=== PATIENT | female | born 1985 | race Two or more races ===

== ENCOUNTER 2018-03-26 00:28 | Emergency (ER) | payer MEDICAID ==
[~2018-03-26] VITALS: Ht 175.3 cm; Wt 79.4 kg
--- NOTE | 2018-03-26 00:30 | NUR ---
TO BED 9 AMBULATORY BIB FRIEND C/O "I HAVE BEEN THINKING OF KILLING MYSELF BUT I DONT THINK I WILL".I ALSO STARTED PLAYING W/ THE IDEA OF CUTTING MYSELF".+SI,-HI.DENIES DRUGS. PT AAOX4 NO ACUTE DISTRESS NOTED, RESP EVEN AND UNLABORED. PT CALM AND COOPERATIVE AT THIS TIME. PENDING ER MD [place].
--- NOTE | 2018-03-26 01:04 | NUR ---
ER MD AT BEDSIDE TO EVAL PT WITH ORDERS RECEIVED. WILL CARRY OUT ORDERS.
--- NOTE | 2018-03-26 01:08 | NUR ---
URINE SAMPLE COLLECTED, [employer] TECHNICIAN AT BEDSIDE TO BLOOD DRAW.
[2018-03-26 01:16] LABS: BASOPHILS % (AUTO) 0.5 % (0.0-2.0); HEMATOCRIT 39 % (33-45); HEMOGLOBIN 12.8 g/dL (11.5-14.8); LYMPHOCYTES # (AUTO) 1.9 /CMM (0.8-4.8); LYMPHOCYTES % (AUTO) 28.5 % (20.0-44.0); MEAN CORPUSCULAR HEMOGLOBIN 28 PG (26.0-33.0); MEAN CORPUSCULAR HGB CONC 33 g/dl (31.0-36.0); MEAN CORPUSCULAR VOLUME 84 fL (82-100); MONOCYTES # (AUTO) 0.6 /CMM (0.1-1.30); MONOCYTES % (AUTO) 9.3 % (2.0-12.0); NEUTROPHILS # (AUTO) 3.9 /CMM (1.8-8.9); NEUTROPHILS % (AUTO) 58.7 % (43.0-81.0); PLATELET COUNT (AUTO) 218 /CMM (150-450); WHITE BLOOD COUNT (AUTO) 6.7 K/uL (4.3-11.0)
[2018-03-26 01:32] LABS: CARBON DIOXIDE 29 mmol/L (21-32); CHLORIDE 103 mmol/L (98-107); CREATININE 0.8 mg/dL (0.6-1.3); GLUCOSE 86 mg/dL (74-106); POTASSIUM 3.8 mmol/L (3.5-5.1); SODIUM SERUM 138 mmol/L (136-145); UREA NITROGEN, BLOOD 19 mg/dL (7-18)
[2018-03-26 01:37] LABS: ALANINE AMINOTRANSFERASE 27 U/L (12-78); ALBUMIN 3.6 g/dL (3.4-5.0); ALCOHOL, BLOOD < 3 mg/dL (0-0); ALKALINE PHOSPHATASE 37 U/L (46-116); ASPARTATE AMINOTRANSFERASE 19 U/L (15-37); BILIRUBIN,DIRECT 0.1 mg/dL (0.0-0.2); BILIRUBIN,TOTAL 0.3 mg/dL (0.2-1.0); TOTAL PROTEIN, SERUM 7.1 g/dL (6.4-8.2)
[2018-03-26 01:38] LABS: ACETAMINOPHEN < 10 ug/ml (10-30)
--- NOTE | 2018-03-26 01:51 | NUR ---
GERALDO TORRESW AT BEDSIDE TO ADIN FELDMAN.
--- NOTE | 2018-03-26 08:30 | NUR ---
REPORT GIVEN TO MARJORIE AT [facility].
--- NOTE | 2018-03-26 08:34 | NUR ---
SPOKE WITH OCTOBER WITH [facility] TO SET UP BLS TRANSPORT TO [facility]. ETA [id number]. TRIP #[id number]
[2018-03-26] MEDS ORDERED: LORAZEPAM 1 MG TABLET ONE (09:16)
--- NOTE | 2018-03-26 09:39 | NUR ---
patiet having a panic attack, anxious, crying in bed. md informed, ordered ativan. medication given per md orders.
[2018-03-26] MEDS ORDERED: LORAZEPAM 0.5 MG TABLET PO ONE (10:00)
[2018-03-26 10:10] VITALS: BP 128/64
--- NOTE | 2018-03-26 10:12 | NUR ---
Patient transferred to [facility] in stable condition. Written and verbal after care instructions given. Patient verbalizes understanding of instruction. Left via ambulance.
== END 2018-03-26 10:11 ==
LOC: ER 00:39
DX: F32.9 Major depressive disorder, single episode, unspecified (principal); F90.9 Attention-deficit hyperactivity disorder, unspecified type; W26.0XXA Contact with knife, initial encounter; Y93.89 Activity, other specified; Y92.89 Other specified places as the place of occurrence of the external cause; Y99.8 Other external cause status
CPT/HCPCS: 36415; 80048; 80076; 80305; 80329; 84703; 85025; 99285; A4606; G0480 ×2; Z7610

== ENCOUNTER 2018-12-30 20:12 | Emergency (ER) | payer MEDICAID ==
[~2018-12-30] VITALS: Ht 175.3 cm; Wt 86.2 kg
[2018-12-30 20:17] VITALS: BP 131/84
--- NOTE | 2018-12-30 20:23 | NUR ---
PT PRESENTED TO THE ER WITH FLU LIKE SYMPTOMS. PT AMBULATED TO ER #7 WITH A STEADY GAIT.
== END 2018-12-30 20:59 | disposition home or self-care (01) ==
LOC: ER 20:15
DX: J06.9 Acute upper respiratory infection, unspecified (principal); F90.9 Attention-deficit hyperactivity disorder, unspecified type; F32.9 Major depressive disorder, single episode, unspecified; F41.9 Anxiety disorder, unspecified

== ENCOUNTER 2023-11-12 22:48 | Emergency (ER) | payer MEDICAID ==
[~2023-11-12] VITALS: Ht 167.6 cm; Wt 61.2 kg
[2023-11-12 22:58] VITALS: BP 132/89; TEMP 98.8; O2SAT 98
[2023-11-12] MEDS: oxyCODONE/APAP (5/325 MG) 1 UDTAB TABLET PO ONE (23:51)
[2023-11-12] MEDS ORDERED: oxyCODONE/APAP (5/325 MG) 1 UDTAB TABLET ONE (23:51)
[2023-11-13 00:09] LABS: APPEARANCE,URINE CLEAR (CLEAR); BILIRUBIN,URINE NEGATIVE (NEGATIVE); BLOOD, URINE NEGATIVE Ery/uL (NEGATIVE); COLOR,URINE YELLOW (YELLOW); KETONES,URINE TRACE mg/dL (NEGATIVE); LEUKOCYTE ESTERASE ,URINE NEGATIVE (NEGATIVE); NITRITE, URINE NEGATIVE (NEGATIVE); PH,URINE 5.5 (5.0-8.0); PROTEIN,URINE NEGATIVE (NEGATIVE); UGLUCOSE NEGATIVE (NEGATIVE); UROBILINOGEN,URINE 0.2 EU/dL (0.2)
[2023-11-13 00:14] LABS: PREGNANCY TEST URINE QUAL NEGATIVE (NEGATIVE)
== END 2023-11-13 00:20 | disposition left against medical advice (07) ==
LOC: ER 22:49
DX: R10.32 Left lower quadrant pain (principal); R30.0 Dysuria; F41.9 Anxiety disorder, unspecified; F90.9 Attention-deficit hyperactivity disorder, unspecified type; F31.9 Bipolar disorder, unspecified
CPT/HCPCS: 84703-TC